=== PATIENT | male | born 1960 | race Caucasian/White ===

== ENCOUNTER → 2025-02-17 09:11 | Outpatient (CLI) | payer MEDICARE, OTHER, SELFPAY ==
--- NOTE | 2025-02-17 09:14 | DI.MRI.S_ITS ---
PROCEDURE: MR LUMBAR SPINE WO CON INDICATIONS: low back pain radiating to left lower limb, hx cancer TECHNIQUE: Noncontrast sagittal T1 spin echo and T2 fast echo, sagittal STIR, and T2 fast spin echo through the lumbar spine. In cases with scoliosis, additional coronal T2 fast spin echo may be performed. COMPARISON: None. FINDINGS: Alignment and Curvature: There is normal bony alignment. Bone Marrow: Marrow is of normal overall signal. No acute vertebral body compression fractures. Spinal Cord: Conus medullaris terminates at the L1 level. Visualized cord demonstrates normal signal and size. At the L3 level, there appears to be a 1.1 x 0.7 cm intradural extramedullary lesion with both solid and cystic components. Evaluation is somewhat limited by motion artifact on the axial. Paraspinous Soft Tissues: No paravertebral masses. T12-L1: No central or foraminal stenosis L1-L2: No central or foraminal stenosis L2-L3: Disc bulge and arthropathy. Ligamentum flavum laxity. Moderate central stenosis. Mild bilateral foraminal stenosis L3-L4: Disc bulge and arthropathy. Ligamentum flavum laxity. Severe central stenosis. Moderate left and mild right foraminal stenosis L4-L5: Disc bulge and arthropathy. Large medial directed osteophyte arising from the right facet. Severe central stenosis. Mild foraminal stenosis L5-S1: Right-sided arthropathy. No central stenosis. Moderate right and mild left foraminal stenosis IMPRESSION: Possible intrathecal solid and cystic mass lesion at the L3 level can be further evaluated with MR lumbar spine with IV contrast. 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 on 02/20/2025 at 16:04
== END ==
LOC: MRI 09:13
PROVIDERS: PCP Physician Assistant; Referring Provider Physical Medicine & Rehabilitation; Visit Provider Physical Medicine & Rehabilitation
DX: M47.27 Other spondylosis with radiculopathy, lumbosacral region (principal); M47.26 Other spondylosis with radiculopathy, lumbar region; M51.16 Intervertebral disc disorders with radiculopathy, lumbar region; M48.07 Spinal stenosis, lumbosacral region; M48.061 Spinal stenosis, lumbar region without neurogenic claudication
CPT/HCPCS: 72148

== ENCOUNTER → 2025-03-10 09:02 | Outpatient (CLI) | payer MEDICARE, OTHER, SELFPAY ==
--- NOTE | 2025-03-10 09:03 | DI.MRI.S_ITS ---
PROCEDURE: MR LUMBAR SPINE WO/W CON INDICATIONS: follow up on abnormal finding on prior MRI TECHNIQUE: Noncontrast sagittal T1 spin echo and T2 fast echo, sagittal STIR, and T2 fast spin echo through the lumbar spine. In cases with scoliosis, additional coronal T2 fast spin echo may be performed. COMPARISON: None. FINDINGS: Image quality: Excellent Mild straightening the lumbar spine. Mild retrolisthesis of L1 on L2. Grade 1 anterolisthesis of L3 on L4, L4 on L5. Vertebral body height and lumbar spine are well maintained. Multilevel disc desiccation. Conus terminates at the level of L1-2, and is unremarkable. Right neural foraminal stenosis: Mild at L1-2, L3-4, L4-5, and L5-S1. Left neural from stenosis: Mild at L1-2, L2-3, moderate at L3-4, mild at L4-5 and L5-S1. Axial images: T12-L1: Disc bulge. Mild bilateral facet arthropathy. No central canal stenosis. L1-2: Mild disc bulge. Mild bilateral facet arthropathy. No central canal stenosis. L2-3: Moderate bilateral facet arthropathy. Mild central canal stenosis. L3-4: Severe bilateral facet arthropathy. Disc bulge. Severe central canal stenosis. L4-5: Severe bilateral facet arthropathy with fluid within the left facet. Anterior projecting osteophyte of the right facet. Severe central canal stenosis. L5-S1: Severe right, mild left facet arthropathy. Disc bulge. No central canal stenosis. Small anterior bridging osteophyte of bilateral sacroiliac joint. The visualized sacrum is intact. Small left renal cyst. IMPRESSION: 1. Multilevel degenerative changes, with severe central canal stenosis at L3-4 and L4-5. 2. Additional up to moderate neural foraminal stenosis as described above. Dictated by: Felicia Swan M.D. on 03/10/2025 at 11:56 Approved by: Felicia Swan M.D. on 03/10/2025 at 12:08
== END ==
PROVIDERS: PCP Physician Assistant; Referring Provider Physical Medicine & Rehabilitation; Visit Provider Physical Medicine & Rehabilitation
DX: M48.061 Spinal stenosis, lumbar region without neurogenic claudication (principal); M51.16 Intervertebral disc disorders with radiculopathy, lumbar region; M51.17 Intervertebral disc disorders with radiculopathy, lumbosacral region; M47.26 Other spondylosis with radiculopathy, lumbar region; M47.27 Other spondylosis with radiculopathy, lumbosacral region; R93.7 Abnormal findings on diagnostic imaging of other parts of musculoskeletal system; Z85.9 Personal history of malignant neoplasm, unspecified
CPT/HCPCS: 72158; Q9967